=== PATIENT | male | born 1970 | race African-American/Black ===

== ENCOUNTER 2017-06-17 20:32 | Emergency (ER) | payer MEDICAID ==
[~2017-06-17] VITALS: Ht 170.2 cm; Wt 81.6 kg
[2017-06-17 20:35] VITALS: BP 145/100
--- NOTE | 2017-06-17 20:45 | NUR ---
PT. AMBULATES TO ER BED 5
--- NOTE | 2017-06-17 21:20 | NUR ---
Patient being evaluated by DR. HAQ at bedside.
--- NOTE | 2017-06-17 21:21 | NUR ---
47Y/M PT. PRESENTS TO ED WITH C/O CHEST PAIN X 5 DAYS. PT. ETOH, NO MEDICAL HX. AAO X4, AMBULATORY WITH STEADY GAIT. RESPIRATIONS ROOM AIR, EVEN AND UNLABORED. BL LUNGS CLEAR. SKIN WARM AND DRY. STATES PAIN 08/08. VSS, ER MD MADE AWARE OF PT. STATUS.
[2017-06-17 21:26] VITALS: BP 132/88
--- NOTE | 2017-06-17 21:26 | NUR ---
Patient discharged with v/s stable. Written and verbal after care instructions given and explained. Patient alert, oriented and verbalized understanding of instructions. Ambulatory with steady gait. All questions addressed prior to discharge. ID band removed. Patient advised to follow up with PMD. Rx of MOTRIN 800 MG given. Patient educated on indication of medication including possible reaction and side effects. Opportunity to ask questions provided and answered.
== END 2017-06-17 21:26 | disposition home or self-care (01) ==
LOC: MED 20:32
DX: R07.89 Other chest pain (principal)
CPT/HCPCS: 93005; 99283

== ENCOUNTER 2017-06-30 17:33 | Inpatient (IN) | payer MEDICAID ==
[~2017-06-30] VITALS: Ht 167.6 cm; Wt 76.7 kg
[2017-06-30 10:15] VITALS: BP 100/68
[2017-06-30 18:11] VITALS: BP 141/101
[2017-06-30] MEDS ORDERED: NACL 0.9% 500 ML IV ONE (19:09)
[2017-06-30] MEDS ORDERED: MULTIVITAMIN-12 10 ML, THIAMINE 100 MG, MAGNESIUM SULFATE 50% 2,000 MG, FOLIC ACID 5 MG... IV ONE ×5 (19:10)
[2017-06-30 19:48] LABS: HEMATOCRIT 40.6 % (36-52); HEMOGLOBIN 13.2 g/dL (12.0-18.0); WHITE BLOOD COUNT (AUTO) 4.9 K/uL (4.8-10.8)
[2017-06-30 19:52] LABS: MEAN CORPUSCULAR HEMOGLOBIN 28 pg (27-31); MEAN CORPUSCULAR HGB CONC 33 g/dL (33-37); MEAN CORPUSCULAR VOLUME 86 fL (80-94); PLATELET COUNT (AUTO) 212 K/uL (140-450); RED BLOOD CELL COUNT(AUTO) 4.71 MIL/uL (4.20-6.10); RED CELL DISTRIBUTION WIDTH 15.8 % (11.6-13.7)
[2017-06-30 19:57] LABS: ANION GAP 25.8 (8-16); CARBON DIOXIDE 18.5 mmol/L (21-32); CREATININE 1.1 mg/dL (0.7-1.3); POTASSIUM 4.3 mmol/L (3.5-5.1)
[2017-06-30 20:01] LABS: EOSINOPHILS % (MANUAL) 1 % (0-4); LYMPHOCYTES % (MANUAL) 47 % (20-46); MONOCYTES % (MANUAL) 7 % (5-12)
[2017-06-30 20:03] LABS: ALBUMIN 4.4 g/dL (3.4-5.0); TOTAL BILIRUBIN 0.3 mg/dL (0.0-1.0)
--- NOTE | 2017-06-30 20:15 | NUR ---
TO ER BED 4
--- NOTE | 2017-06-30 20:20 | NUR ---
PATIENT PRESENTS TO ED WITH C/O CP NON RADIATING .PT STATES HE HAS BEEN DRINKING FOR 3 WEEKS AND BEEN ALSO HAVING HALLUCINATION X 2 WEEK BUT ARE NOT HARMFUL TO HIMSELF OR OTHERS. PT DENIES N/V/D; SKIN IS PINK/WARM/DRY; AAOX4 WITH EVEN AND STEADY GAIT; LUNGS CLEAR BL; HR EVEN AND REGULAR; PT DENIES ANY FEVER, CP, SOB, OR COUGH AT THIS TIME; PATIENT STATES PAIN OF 0/10 AT THIS TIME; VSS; PATIENT POSITIONED FOR COMFORT; HOB ELEVATED; BEDRAILS UP X2; BED DOWN. ER MD MADE AWARE OF PT STATUS.
[2017-06-30] MEDS ORDERED: FOLIC ACID 5 MG/ML SYR ONE (20:38)
[2017-06-30] MEDS ORDERED: THIAMINE 200 MG/2 ML VIAL ONE (20:38)
[2017-06-30] MEDS ORDERED: MULTIVITAMIN-12 10 ML VIAL IV ONE (20:38)
[2017-06-30] MEDS ORDERED: MAG SULF 2000 MG/WATER PREMIX 0 ML IV ONE (20:46)
[2017-06-30] MEDS ORDERED: LORazepam 2 MG/ML VIAL IVP ONE (20:50)
[2017-06-30] MEDS ORDERED: LORazepam 1 MG TAB PO PRN (21:25)
[2017-06-30] MEDS: NACL 0.9% 1,000 ML IV SCH (21:39)
[2017-06-30] MEDS ORDERED: DOCUSATE SODIUM 100 MG GELCAP PO PRN (21:40)
[2017-06-30] MEDS ORDERED: ACETAMINOPHEN 325 MG TAB PO PRN (21:40)
[2017-06-30] MEDS ORDERED: MORPHINE SULFATE 2 MG/ML SYR IVP PRN (21:40)
[2017-06-30] MEDS ORDERED: ONDANSETRON 4 MG/2 ML VIAL IM/IVP PRN (21:40)
[2017-06-30] MEDS ORDERED: HYDROcodone/APAP 7.5/325 MG 1 TAB PO PRN (21:40)
[2017-06-30 21:42] LABS: PROTHROMBIN TIME 8.9 secs (10.8-13.4)
--- NOTE | 2017-06-30 21:45 | NUR ---
Patient will be admitted to care of DR CONROY. Admited to TELE 107B. Will go to room 107B. Belongings list completed. Report to ENOC BARNEY .
[2017-06-30] MEDS ORDERED: DEXTROSE 50% 50 ML SYR IVP PRN (21:50)
--- NOTE | 2017-06-30 22:10 | NUR ---
RECEIVED HANDOFF FROM ED NURSE. PATIENT A&OX4. IV SITE PATENT AND INTACT. NO SIGNS OR SYMPTOMS OF ACUTE DISTRESS. PATIENT DENIES PAIN. FAMILY MEMBER AT BEDSIDE. ORIENTED PATIENT TO ROOM. SAFETY MEASURES ENSURED. CALL LIGHT WITHIN REACH. WILL CONTINUE TO MONITOR.
[2017-06-30 22:16] LABS: FREE T4 (FREE THYROXINE) 0.66 ng/dL (0.76-1.46); PHOSPHORUS 4.5 mg/dL (2.5-4.9); THYROID STIMULATING HORMONE 2.07 uIU/mL (0.34-3.74)
[2017-07-01] VITALS: BP 127/72
--- NOTE | 2017-07-01 01:49 | NUR ---
PATIENT SLEEPING. NO SIGNS AND SYMPTOMS OF ACUTE DISTRESS NOTED. CALL LIGHT WITHIN REACH. WILL CONTINUE TO MONITOR.
[2017-07-01 03:23] LABS: HEMATOCRIT 34.8 % (36-52); HEMOGLOBIN 11.5 g/dL (12.0-18.0); MEAN CORPUSCULAR HEMOGLOBIN 28 pg (27-31); MEAN CORPUSCULAR HGB CONC 33 g/dL (33-37); MEAN CORPUSCULAR VOLUME 86 fL (80-94); PLATELET COUNT (AUTO) 173 K/uL (140-450); RED BLOOD CELL COUNT(AUTO) 4.04 MIL/uL (4.20-6.10); RED CELL DISTRIBUTION WIDTH 15.7 % (11.6-13.7)
[2017-07-01 03:33] LABS: ANION GAP 21.9 (8-16); CARBON DIOXIDE 19.1 mmol/L (21-32); CREATININE 1.1 mg/dL (0.7-1.3)
[2017-07-01 03:44] LABS: LYMPHOCYTES % (MANUAL) 40 % (20-46); MONOCYTES % (MANUAL) 10 % (5-12)
[2017-07-01 04:00] VITALS: BP 128/69
[2017-07-01] MEDS: NACL 0.9% 1,000 ML IV SCH ×2 (04:00→05:14)
--- NOTE | 2017-07-01 04:32 | NUR ---
PATIENT SLEEPING. NO SIGNS AND SYMPTOMS OF ACUTE DISTRESS. CALL LIGHT WITHIN REACH. WILL CONTINUE TO MONITOR.
--- NOTE | 2017-07-01 05:08 | NUR ---
PATIENT GIVEN HANDOUTS REGARDING DIABETES MANAGEMENT AND ALCOHOL ABUSE CESSATION. PATIENT VERBALIZED UNDERSTANDING. CALL LIGHT WITHIN REACH. WILL CONTINUE TO MONITOR.
[2017-07-01] MEDS: BLOOD GLUCOSE MONITORING 1 DEV DEV FS SCH ×3 (06:28→16:38)
[2017-07-01] MEDS: INSULIN LISPRO SLIDING SCALE 100 UNITS/ML VIAL SUBQ PRN ×3 (06:29→16:45)
--- NOTE | 2017-07-01 07:23 | NUR ---
ENDORSED HANDOFF REPORT TO AM RN. PATIENT STABLE. CALL LIGHT WITHIN REACH
--- NOTE | 2017-07-01 07:25 | NUR ---
RECEIVED PATIENT REPORT AT BEDSIDE FROM EVENING NURSE. NO SIGNS AND SYMPTOMS OF DISTRESS NOTED. NO COMPLAINTS OF PAIN AT THIS TIME. IV SITE NOTED ON LEFT FOREARM. IVF INFUSING WELL. BED IN LOWEST POSITION, SIDE RAILS UP AND CALL-LIGHT WITHIN REACH. WILL CONTINUE TO MONITOR.
[2017-07-01 08:00] VITALS: BP 118/80
[2017-07-01] MEDS: metFORMIN 500 MG TAB PO SCH ×2 (08:51→17:26)
[2017-07-01] MEDS ORDERED: MULTIVITAMIN 1 TAB PO SCH (09:00)
[2017-07-01] MEDS ORDERED: FOLIC ACID 1 MG TAB PO SCH (09:00)
[2017-07-01] MEDS ORDERED: THIAMINE 200 MG/2 ML VIAL IM SCH (09:00)
[2017-07-01] MEDS ORDERED: ATORVASTATIN 20 MG TAB PO SCH (09:00)
[2017-07-01] MEDS ORDERED: LISINOPRIL 5 MG TAB PO SCH (09:00)
--- NOTE | 2017-07-01 09:00 | NUR ---
PATIENT'S FAMILY MEMBER VISITING, PRESENT AT BEDSIDE
[2017-07-01 12:00] VITALS: BP 126/84
--- NOTE | 2017-07-01 12:00 | NUR ---
CHECKED ON PATIENT. PATIENT IS RESTING IN BED WATCHING TV. NO SIGNS AND SYMPTOMS OF DISTRESS NOTED. NO COMPLAINTS OF PAIN AT THIS TIME. BED IN LOWEST POSITION, SIDE RAILS UP AND CALL-LIGHT WITHIN REACH. WILL CONTINUE TO MONITOR
[2017-07-01] MEDS ORDERED: LORazepam 1 MG TAB PO SCH (13:00)
[2017-07-01] MEDS ORDERED: NACL 0.9% 1,000 ML IV SCH (14:10)
[2017-07-01 16:00] VITALS: BP 116/80
[2017-07-01] MEDS ORDERED: ATOR20TA40 PO (18:03)
[2017-07-01] MEDS ORDERED: LORA-476 PO (18:03)
[2017-07-01] MEDS ORDERED: LISI-424 PO (18:03)
[2017-07-01] MEDS ORDERED: MULT-405 PO (18:03)
[2017-07-01] MEDS ORDERED: METF500T4 PO (18:03)
[2017-07-01] MEDS ORDERED: FOLI1TAB90 PO (18:03)
--- NOTE | 2017-07-01 18:52 | NUR ---
PATIENT DISCHARGED. PATIENT GIVEN DISCHARGE INSTRUCTIONS AND PRESCRIPTIONS. PATIENT SIGNED DISCHARGE PAPERS, AND VERBALIZED UNDERSTANDING. IV SITE DISCONTINUED. TELE LEADS TAKEN OFF. PATIENT LEFT WITH ALL OF HIS BELONGINGS. PATIENT LEFT IN STABLE CONDITION.
--- NOTE | 2017-07-05 08:06 | NUR ---
DUNIA AVILA TRADE RECRUITER FROM [facility] [phone] FAX REVIEW TO [phone] REF #[id number] RETRO REVIEW, ER REPORT, H&P AND DISCHARGE SUMMARY FAXED TO GRAZYNA AVILA TRADE RECRUITER, [employer] [facility] [phone] RETRO ER REPORT, H&P AND DISCHARGE SUMMARY FAXED TO [employer] [phone] PHONE [phone] [id number] OP2
== END 2017-07-01 18:57 | disposition home or self-care (01) | DRG 775 ==
LOC: MED 17:33 → MTU 21:19
PROVIDERS: ADMIT Family Medicine; ATTEND Family Medicine
DX: F10.239 Alcohol dependence with withdrawal, unspecified (principal); E87.2 Acidosis; F10.229 Alcohol dependence with intoxication, unspecified; E11.65 Type 2 diabetes mellitus with hyperglycemia; R74.0 Nonspecific elevation of levels of transaminase and lactic acid dehydrogenase [LDH]; I10 Essential (primary) hypertension; Y90.8 Blood alcohol level of 240 mg/100 ml or more; E78.00 Pure hypercholesterolemia, unspecified; F12.90 Cannabis use, unspecified, uncomplicated; Z91.14 Patient's other noncompliance with medication regimen; Z83.3 Family history of diabetes mellitus; Z82.49 Family history of ischemic heart disease and other diseases of the circulatory system
CPT/HCPCS: 36415; 71010; 76700; 80048; 80053; 82948; 83036; 83690; 83735; 84100; 84436; 84439; 84443; 84479; 85025; 85610; 85730; 87081; 93005; 96365; 96375; 99285; A9153; G0482; J2060; J3411; J3475; J3490; J7030; Q0092

== ENCOUNTER 2017-12-04 08:13 | Inpatient (IN) | payer MEDICAID ==
[~2017-12-04] VITALS: Ht 170.2 cm; Wt 83.9 kg
[~2017-12-04 08:13] MED LIST: ATOR20TA40 PO; FOLI1TAB90 PO; LISI-424 PO; LORA-476 PO; METF500T4 PO; MULT-405 PO
[2017-12-04 08:18] VITALS: BP 128/96
--- NOTE | 2017-12-04 08:29 | NUR ---
PATIENT PRESENTS TO ED WITH GLUTEAL ABSCESS RIGHT BUTTOCK X 2 DAYS . PT STATES . DENIES N/V/D; SKIN IS PINK/WARM/DRY; AAOX4 WITH EVEN AND STEADY GAIT; LUNGS CLEAR BL; HR EVEN AND REGULAR; PT DENIES ANY FEVER, CP, SOB, OR COUGH AT THIS TIME; PATIENT STATES PAIN OF 10/10 AT THIS TIME; VSS; PATIENT POSITIONED FOR COMFORT; HOB ELEVATED; BEDRAILS UP X2; BED DOWN. ER MD MADE AWARE OF PT STATUS.
[2017-12-04] MEDS ORDERED: NACL 0.9% 1,000 ML IV SCH (08:39)
[2017-12-04] MEDS ORDERED: KETOROLAC 30 MG/ML VIAL IVP ONE (08:40)
[2017-12-04] MEDS ORDERED: CLINDAMYCIN 600 MG in DEXTROSE 5% 50 ML IV ONE (08:40)
[2017-12-04] MEDS ORDERED: ceFAZolin 1,000 MG VIAL ONE (08:53)
[2017-12-04] MEDS ORDERED: CLINDAMYCIN 600 MG/4 ML VIAL ONE (08:54)
--- NOTE | 2017-12-04 09:00 | NUR ---
PT STATING, HE REMEMBERS HAVING TAKEN TETANUS WITHIN LAST 6 MONTHS. MD NOTIFIED
[2017-12-04 09:11] LABS: BASOPHILS # (AUTO) 0.1 K/uL (0.00-0.22); BASOPHILS % (AUTO) 1.3 % (0.0-2.0); EOSINOPHILS # (AUTO) 0.1 K/uL (0-0.4); EOSINOPHILS % (AUTO) 2.1 % (0.0-4.0); HEMATOCRIT 37.4 % (36-52); HEMOGLOBIN 12.2 g/dL (12.0-18.0); LYMPHOCYTES # (AUTO) 0.8 K/uL (2.0-11.5); LYMPHOCYTES % (AUTO) 13.3 % (20.5-51.1); MEAN CORPUSCULAR HEMOGLOBIN 27 pg (27-31); MEAN CORPUSCULAR HGB CONC 33 g/dL (33-37); MEAN CORPUSCULAR VOLUME 81 fL (80-94); MONOCYTES # (AUTO) 0.7 K/uL (0.8-1.0); MONOCYTES % (AUTO) 12.6 % (1.7-9.3); NEUTROPHILS % (AUTO) 70.7 % (42.2-75.2); PLATELET COUNT (AUTO) 162 K/uL (140-450); RED BLOOD CELL COUNT(AUTO) 4.61 MIL/uL (4.20-6.10); RED CELL DISTRIBUTION WIDTH 14.5 % (11.6-13.7); WHITE BLOOD COUNT (AUTO) 5.7 K/uL (4.8-10.8)
[2017-12-04 09:28] LABS: CARBON DIOXIDE 20.1 mmol/L (21-32); POTASSIUM 4.1 mmol/L (3.5-5.1); TOTAL BILIRUBIN 0.3 mg/dL (0.0-1.0)
[2017-12-04] MEDS ORDERED: INSULIN HUMAN REGULAR 100 UNITS/ML 10 ML VIAL IVP ONE (09:50)
[2017-12-04] MEDS ORDERED: DEXTROSE 50% 50 ML SYR IVP PRN (10:55)
[2017-12-04] MEDS ORDERED: ONDANSETRON 4 MG/2 ML VIAL IVP PRN (10:55)
[2017-12-04] MEDS ORDERED: LORazepam 2 MG/ML VIAL IVP PRN (10:55)
[2017-12-04] MEDS ORDERED: LORazepam 1 MG TAB PO PRN (10:55)
[2017-12-04] MEDS ORDERED: ACETAMINOPHEN 325 MG TAB PO PRN (10:55)
[2017-12-04 11:05] VITALS: BP 123/81
[2017-12-04] MEDS: BLOOD GLUCOSE MONITORING 1 DEV DEV FS SCH ×3 (11:30→20:59)
--- NOTE | 2017-12-04 11:30 | NUR ---
PATIENT ADMITTED TO THE UNIT FROM ER. PATIENT AWAKE AND ORIENTED. PATIENT IS AMBULATORY. PATIENT ON ROOM AIR. NO SOB, NO S/S OF DISTRESS. OPEN ABSCESS NOTED TO THE RIGHT BUTTOCK. SEROSANGUINEOUS DRAINAGE NOTED. NONADHERENT DRESSING IN PLACE. IV LINE NOTED TO THE RIGHT AC, SALINE LOCKED. BED LOWERED WITH CALL LIGHT WITHIN REACH. WILL CONTINUE TO MONITOR
--- NOTE | 2017-12-04 12:00 | NUR ---
PATIENT'S BLOOD SUGAR 187. PATIENT REQUESTED TO HOLD OFF ON INSULIN FOR NOW. PATIENT RECEIVED 10 UNITS OF INSULIN IN ER. WILL CONTINUE TO MONITOR
[2017-12-04 12:44] LABS: APPEARANCE,URINE CLEAR (CLEAR); BILIRUBIN,URINE NEGATIVE (NEGATIVE); BLOOD, URINE NEGATIVE (NEGATIVE); COLOR,URINE YELLOW (YELLOW); LEUKOCYTE ESTERASE ,URINE NEGATIVE (NEGATIVE); NITRITE, URINE NEGATIVE (NEGATIVE); PH,URINE 5.5 (5.0-9.0); UGLUCOSE 3+ (NEGATIVE)
[2017-12-04] MEDS: MORPHINE SULFATE 2 MG/ML SYR IVP PRN ×2 (12:52→21:09)
[2017-12-04 13:39] LABS: PROTHROMBIN TIME 9.1 secs (10.8-13.4)
[2017-12-04] MEDS ORDERED: VANCOMYCIN PER PHARMACY MC PRN (14:15)
[2017-12-04 16:00] VITALS: BP 125/83
[2017-12-04] MEDS: VANCOMYCIN 1,250 MG in DEXTROSE 5% 250 ML IV SCH (16:22)
[2017-12-04] MEDS: metFORMIN 500 MG TAB PO SCH (16:31)
[2017-12-04] MEDS: HYDROcodone/APAP 5/325 MG 1 TAB TAB PO PRN (16:32)
[2017-12-04] MEDS: INSULIN LISPRO SLIDING SCALE 100 UNITS/ML VIAL SUBQ PRN ×2 (16:36→20:55)
[2017-12-04] MEDS: DEXT 5% / NACL 0.45% 1,000 ML IV SCH (17:57)
--- NOTE | 2017-12-04 19:26 | NUR ---
PATIENT REPORT GIVEN AT BEDSIDE. PATIENT ENDORSED IN STABLE CONDITION.
--- NOTE | 2017-12-04 19:27 | NUR ---
RECEIVED REPORT FROM DAY SHIFT NURSE. AAOX4. PT SITTING IN BED, EATING. AT BEDSIDE. NO C/O PAIN AT THIS TIME. IV TO RIGHT AC #20G, D5 1/2NS AT 100 ML/HR, INFUSING WELL. DISCUSSED PLAN OF CARE, PT VERBALIZED UNDERSTANDING. CALL LIGHT WITHIN REACH. WILL CONTINUE TO MONITOR.
[2017-12-04 20:00] VITALS: BP 131/90
[2017-12-04] MEDS ORDERED: CLINDAMYCIN 600 MG in DEXTROSE 5% 50 ML IV SCH (21:00)
--- NOTE | 2017-12-04 21:00 | NUR ---
BS CHECKED 263. 6 UNITS OF HUMALOG SQ GIVEN. NO DISTRESS NOTED. CALL LIGHT WITHIN REACH.
--- NOTE | 2017-12-04 23:30 | NUR ---
RIGHT BUTTOCK DRESSING CHANGED. NO C/O PAIN. WILL CONTINUE TO MONITOR. CALL LIGHT WITHIN REACH.
--- NOTE | 2017-12-05 02:00 | NUR ---
PT SLEEPING BUT EASILY AROUSABLE. NO C/O PAIN OR DISCOMFORT. CALL LIGHT WITHIN REACH.
[2017-12-05] MEDS: DEXT 5% / NACL 0.45% 1,000 ML IV SCH ×2 (03:15→13:19)
[2017-12-05 04:00] VITALS: BP 130/82
--- NOTE | 2017-12-05 04:40 | NUR ---
PT SLEEPING BUT WAKES EASILY. NO S/S OF DISTRESS. CALL LIGHT WITHIN REACH.
[2017-12-05] MEDS: VANCOMYCIN 1,250 MG in DEXTROSE 5% 250 ML IV SCH (04:50)
[2017-12-05] MEDS: INSULIN LISPRO SLIDING SCALE 100 UNITS/ML VIAL SUBQ PRN ×4 (06:26→20:25)
[2017-12-05] MEDS: BLOOD GLUCOSE MONITORING 1 DEV DEV FS SCH ×4 (06:28→20:21)
--- NOTE | 2017-12-05 06:30 | NUR ---
BS CHECKED 278. INSULIN COVERAGE GIVEN PER SLIDING SCALE. NO DISTRESS NOTED.
[2017-12-05 07:05] LABS: BASOPHILS # (AUTO) 0.1 K/uL (0.00-0.22); EOSINOPHILS # (AUTO) 0.1 K/uL (0-0.4); EOSINOPHILS % (AUTO) 2.2 % (0.0-4.0); HEMATOCRIT 34.5 % (36-52); HEMOGLOBIN 11.1 g/dL (12.0-18.0); LYMPHOCYTES % (AUTO) 28.6 % (20.5-51.1); MEAN CORPUSCULAR HEMOGLOBIN 26 pg (27-31); MEAN CORPUSCULAR HGB CONC 32 g/dL (33-37); MEAN CORPUSCULAR VOLUME 82 fL (80-94); MONOCYTES # (AUTO) 0.5 K/uL (0.8-1.0); MONOCYTES % (AUTO) 14.2 % (1.7-9.3); NEUTROPHILS # (AUTO) 1.8 K/uL (1.8-7.7); PLATELET COUNT (AUTO) 158 K/uL (140-450); RED CELL DISTRIBUTION WIDTH 14.5 % (11.6-13.7); WHITE BLOOD COUNT (AUTO) 3.5 K/uL (4.8-10.8)
[2017-12-05 07:19] LABS: ANION GAP 17.3 (8-16); CARBON DIOXIDE 23.5 mmol/L (21-32); CREATININE 0.8 mg/dL (0.7-1.3); POTASSIUM 3.8 mmol/L (3.5-5.1)
--- NOTE | 2017-12-05 07:20 | NUR ---
ENDORSED PT TO DAY SHIFT NURSE. PT IN STABLE CONDITION.
--- NOTE | 2017-12-05 07:25 | NUR ---
RECEIVED REPORT FROM BURGLAR ALARM SUPERINTENDENT NURSE, PT IS SITTING UP IN BED, PT IS AAOX4, AMBULATORY, PT HAS IV ON THE RIGHT AC, PATENT, INTACT, FLUSHING WELL, PT HAS CELLULITIS ON RIGHT BUTTOCKS, DRESSING IN PLACE AT THIS TIME, DRY AND INTACT, NO S/S OF RESPIRATORY DISTRESS OR DISCOMFORT NOTED, DISCUSSED PLAN OF CARE WITH PT, PT VERBALIZED UNDERSTANDING, CALL LIGHT IS WITHIN REACH, WILL CONTINUE TO MONITOR.
[2017-12-05] MEDS: LISINOPRIL 5 MG TAB PO SCH (08:20)
[2017-12-05] MEDS: metFORMIN 500 MG TAB PO SCH ×2 (08:21→17:31)
[2017-12-05] MEDS: MORPHINE SULFATE 2 MG/ML SYR IVP PRN ×3 (08:23→22:48)
[2017-12-05] MEDS: ATORVASTATIN 20 MG TAB PO SCH (09:00)
[2017-12-05] MEDS: FOLIC ACID 1 MG TAB PO SCH (09:00)
[2017-12-05] MEDS: MULTIVITAMIN 1 TAB PO SCH (09:08)
--- NOTE | 2017-12-05 09:46 | NUR ---
PATIENT HAS BEEN SCREENED AND CATEGORIZED HIGH NUTRITION RISK. PATIENT WILL BE SEEN WITHIN 1-2 DAYS OF ADMISSION. 12/04/17-12/05/[address]
--- NOTE | 2017-12-05 14:13 | NUR ---
CM NOTE SPOKE WITH YFN OF [facility] PH# [phone] CM DEPT WHO SAID THAT FOR REVIEWS AND FOR ANY DISCHARGE NEEDS TO CONTACT [facility] BECAUSE PATIENT IS OUT OF AREA. SPOKE WITH UNIQUE (REF# [id number]) OF [facility] PH# [phone] AND CONNECTED ME TO TU OF [facility] WHO SAID THAT THERE IS NO ASSIGNED FLOOR REPRESENTATIVE YET AND NO NUMBER YET WHERE TO SEND REVIEWS TO. SHE GOT MY CONTACT NUMBER AND SAID THAT SOMEBODY FROM [facility] WILL GIVE A CALL WHEN THEY ALREADY HAVE AN ASSIGNED FLOOR REPRESENTATIVE TO KNOW WHERE TO SEND REVIEWS TO AND WHO TO CONTACT FOR ANY DISCHARGE NEEDS.
[2017-12-05] MEDS ORDERED: BUPIVACAINE-MPF 0.25% 30 ML VIAL INJ ONE (14:18)
[2017-12-05] MEDS ORDERED: HYDROGEN PEROXIDE 3% 240 ML BTL TP ONE (14:19)
--- NOTE | 2017-12-05 14:30 | NUR ---
PATIENT TAKEN OFF UNIT TAKEN TO OR FOR PROCEDURE. PT LEFT IN STABLE CONDITION.
[2017-12-05] MEDS ORDERED: KETAMINE 500 MG/5 ML VIAL ONE (14:50)
[2017-12-05] MEDS ORDERED: MIDAZOLAM 2 MG/2 ML VIAL ONE (14:50)
[2017-12-05] MEDS ORDERED: fentaNYL 0.05 MG/ML VIAL ONE (14:58)
[2017-12-05] MEDS ORDERED: MEPERIDINE 50 MG/ML SYR ONE (14:59)
[2017-12-05] MEDS: CHLORHEXADINE GLUC 2% CLOTH TP SCH (15:00)
--- NOTE | 2017-12-05 15:00 | NUR ---
PATIENT RETURNED TO UNIT, PT IS AAOX4, PT HAS DRESSING ON RIGHT BUTTOCKS AT THIS TIME, DRY AND INTACT, CALL LIGHT WITHIN REACH, WILL CONTINUE TO MONITOR.
[2017-12-05] MEDS ORDERED: LACTATED RINGERS 1,000 ML IV SCH (15:38)
[2017-12-05] MEDS ORDERED: ONDANSETRON 4 MG/2 ML VIAL IVP PRN (15:40)
[2017-12-05] MEDS ORDERED: MEPERIDINE 25 MG/ML SYR IVP PRN (15:40)
[2017-12-05] MEDS ORDERED: HYDROmorphone 1 MG/ML AMP IVP PRN (15:40)
[2017-12-05] MEDS ORDERED: diphenhydrAMINE 50 MG/ML VIAL IVP PRN (15:40)
[2017-12-05 16:00] VITALS: BP 138/83
[2017-12-05] MEDS: MUPIROCIN 2% OINT 22 GM TUBE TP SCH (16:44)
--- NOTE | 2017-12-05 17:15 | NUR ---
PT RESTING IN BED. PAIN LEVEL HAS DECREASED AFTER ADMINISTERING MORPHINE SULFATE. PT SAID HE ONLY FEELS PAIN WHEN HE MOVES NOW. CALL LIGHT WITHIN REACH. WILL CONTINUE TO MONITOR.
--- NOTE | 2017-12-05 17:16 | NUR ---
PT OFF UNIT
--- NOTE | 2017-12-05 17:34 | NUR ---
12/05/2017 RD INITIAL ASSESSMENT COMPLETED PLEASE REFER TO NUTRITION ASSESSMENT UNDER CARE ACTIVITY FOR ESTIMATED NUTRITIONAL NEEDS. 1.CONTINUE NPO STATUS UNTIL MEDICALLY APPROPRIATE TO ADVANCE DIET. 2.ADVANCE DIET TOLERATED TO CCHO 60 GM WHEN MEDICALLY APPROPRIATE. 3.CONTINUE ANTIHYPERGLYCEMIC MEDS AND INITIATE CCHO DIET FOR GLUCOSE CONTROL. 4.RD TO DISCUSS DIET/INTAKE (COMPLETED). RD TO FOLLOW-UP IN 3-5 DAYS PATIENT IS MODERATE RISK. GORDY CALLEJAS RD
--- NOTE | 2017-12-05 19:20 | NUR ---
PT STABLE AT THIS TIME. ENDORSED PT TO SET UP MOLD TECHNICIAN NURSE FOR CONTINUITY OF CARE.
--- NOTE | 2017-12-05 19:30 | NUR ---
RECEIVED REPORT FROM AM NURSE. PT FAMILY AT BEDSIDE. PT RESTING IN BED, AOX4, AMBULATORY, ABLE TO VERBALIZE NEEDS. PT IS S/P R BUTTOCK ABSCESS I&D TODAY (12/05/17). PT C/O TOLERABLE PAIN AT THIS TIME, WILL MEDICATE WHEN NEEDED. PT DENIES CHEST PAIN, SOB OR S/S OF ACUTE DISTRESS. PT REPORTS BEING ABLE TO TOLERATE CLEAR LIQUID DIET, REPORTS NO NAUSEA. IV ACCESS ASYMPTOMATIC, PATENT AND INTACT. IVF INFUSING WELL. DISCUSSED AND REVIEWED PLAN OF CARE WITH PT, PT VERBALIZED UNDERSTANDING. ALL NEEDS MET. SAFETY MEASURES ENSURED. CALL LIGHT WITHIN REACH.
[2017-12-05 20:00] VITALS: BP 116/75
[2017-12-05] MEDS: VANCOMYCIN 1,500 MG in NACL 0.9% 500 ML IV SCH (20:21)
--- NOTE | 2017-12-05 20:25 | NUR ---
BLOOD GLUCOSE 204, ADMINISTERED INSULIN COVERAGE WITH SNACK AND EDUCATION. ADMINISTERED DUE MED VANCO IVPB WITH EDUCATION. PT VERBALIZED UNDERSTANDING, TOLERATED MEDS WELL. ALL NEEDS MET. IVPB INFUSING WELL. SAFETY MEASURES ENSURED. CALL LIGHT WITHIN REACH. CALLED DR RIVAS, MADE AWARE THAT PT IS ON D5-1/2NS AT 100ML/HR, PT IS S/P R BUTTOCKS ABSCESS I&D TODAY, TOLERATING CLEAR LIQUID DIET WELL, PT HAS HAD ELEVATED BLOOD GLUCOSE WITH MOST RECENT 204. ORDERS RECEIVED TO CHANGE IVF TO NS AT 100ML/HR. ORDERS PENDING, WILL CARRY OUT.
[2017-12-05] MEDS: NACL 0.9% 1,000 ML IV SCH (21:09)
--- NOTE | 2017-12-05 22:48 | NUR ---
PT C/O R BUTTOCK PAIN, SEE PAIN ASSESSMENT, ADMINISTERED 2MG MORPHINE IVP PRN WITH EDUCATION, PT VERBALIZED UNDERSTANDING. ALL NEEDS MET. SAFETY MEASURES ENSURED. CALL LIGHT WITHIN REACH.
[2017-12-06] VITALS: BP 118/80
--- NOTE | 2017-12-06 00:30 | NUR ---
PT SLEEPING COMFORTABLY, AROUSABLE TO NAME, SPO2 98% ON ROOM AIR, RR 16 EVEN AND UNLABORED. ALL NEEDS MET. IVF INFUSING WELL. SAFETY MEASURES ENSURED.
--- NOTE | 2017-12-06 04:45 | NUR ---
PT SLEEPING COMFORTABLY, RESPIRATIONS EVEN AND UNLABORED, ALL NEEDS MET. IVF INFUSING WELL. SAFETY MEASURES ENSURED. CALL LIGHT WITHIN REACH.
[2017-12-06] MEDS: NACL 0.9% 1,000 ML IV SCH ×2 (06:25→16:08)
[2017-12-06] MEDS: HYDROcodone/APAP 5/325 MG 1 TAB TAB PO PRN ×2 (06:36→15:52)
[2017-12-06] MEDS: BLOOD GLUCOSE MONITORING 1 DEV DEV FS SCH ×4 (06:37→20:23)
[2017-12-06] MEDS: INSULIN LISPRO SLIDING SCALE 100 UNITS/ML VIAL SUBQ PRN ×4 (06:50→20:23)
--- NOTE | 2017-12-06 06:50 | NUR ---
BLOOD GLUCOSE 234, ADMINISTERED INSULIN COVERAGE WITH EDUCATION. PT C/O R BUTTOCK PAIN, SEE PAIN ASSESSMENT, ADMINISTERED NORCO PO PRN WITH EDUCATION. PT VERBALIZED UNDERSTANDING, TOLERATED MED WELL. ALL NEEDS MET. IVF INFUSING WELL. SAFETY MEASURES ENSURED. CALL LIGHT WITHIN REACH.
[2017-12-06 06:54] LABS: BASOPHILS % (AUTO) 1.4 % (0.0-2.0); EOSINOPHILS # (AUTO) 0.1 K/uL (0-0.4); EOSINOPHILS % (AUTO) 2.3 % (0.0-4.0); HEMATOCRIT 31.9 % (36-52); HEMOGLOBIN 10.5 g/dL (12.0-18.0); LYMPHOCYTES # (AUTO) 1.3 K/uL (2.0-11.5); LYMPHOCYTES % (AUTO) 39.2 % (20.5-51.1); MEAN CORPUSCULAR HEMOGLOBIN 27 pg (27-31); MEAN CORPUSCULAR HGB CONC 33 g/dL (33-37); MEAN CORPUSCULAR VOLUME 82 fL (80-94); MONOCYTES # (AUTO) 0.4 K/uL (0.8-1.0); MONOCYTES % (AUTO) 10.7 % (1.7-9.3); NEUTROPHILS # (AUTO) 1.5 K/uL (1.8-7.7); NEUTROPHILS % (AUTO) 46.4 % (42.2-75.2); PLATELET COUNT (AUTO) 172 K/uL (140-450); RED CELL DISTRIBUTION WIDTH 14.7 % (11.6-13.7); WHITE BLOOD COUNT (AUTO) 3.3 K/uL (4.8-10.8)
[2017-12-06 07:13] LABS: ANION GAP 16.3 (8-16); CARBON DIOXIDE 24.3 mmol/L (21-32); CREATININE 0.9 mg/dL (0.7-1.3); POTASSIUM 3.6 mmol/L (3.5-5.1)
--- NOTE | 2017-12-06 07:15 | NUR ---
ENDORSED PLAN OF CARE TO AM NURSE. CONDITION STABLE.
--- NOTE | 2017-12-06 07:30 | NUR ---
RECEIVED PT REPORT FROM BUTTON BROACHER NURSE. PT IS AAOX4. PT IS AMBULATORY, ABLE TO VERBALIZE NEEDS. PT IS S/P R BUTTOCK ABSCESS I&D WHICH IS ON 12/05/17. PT DENIES PAIN AT THIS TIME. NO S/S OF ACUTE DISTRESS NOTED. PT REPORTS BEING ABLE TO TOLERATE CLEAR LIQUID DIET, WILL CONTACT MD REGARDING CHANGING DIET ORDER. DENIES NAUSEA AND VOMITING. IV CATH NOTED TO THE RIGHT AC, 20G, ASYMPTOMATIC, PATENT AND INTACT. IVF INFUSING WELL. DISCUSSED PLAN OF CARE WITH PT, PT VERBALIZED UNDERSTANDING. SAFETY MEASURES ENSURED. CALL LIGHT WITHIN REACH.
[2017-12-06 08:00] VITALS: BP 120/73
--- NOTE | 2017-12-06 08:42 | NUR ---
PT REPORTED IV LEAKING. IV DC'ED, TIP INTACT, NO BLEEDING, PRESSURE APPLIED. INSERTED NEW IV LEFT HAND 22G. PT TOLERATED WELL.
[2017-12-06] MEDS: MULTIVITAMIN 1 TAB PO SCH (08:45)
[2017-12-06] MEDS: VANCOMYCIN 1,500 MG in NACL 0.9% 500 ML IV SCH ×2 (08:45→19:32)
[2017-12-06] MEDS: FOLIC ACID 1 MG TAB PO SCH (08:45)
[2017-12-06] MEDS: LISINOPRIL 5 MG TAB PO SCH (08:46)
[2017-12-06] MEDS: ATORVASTATIN 20 MG TAB PO SCH (08:46)
[2017-12-06] MEDS: metFORMIN 500 MG TAB PO SCH ×2 (08:46→17:42)
--- NOTE | 2017-12-06 09:20 | NUR ---
WOUND EVALUATION NOTE: REASON FOR WOUND EVALUATION: S/P RIGHT BUTTOCK ABSCESS INCISION AND DRAINAGE 12/01/17 COMPLETE SKIN ASSESSMENT DONE IN THIS 47Y/O MALE FROM HOME TO [facility] WITH CHIEF COMPLAINT OF RIGHT BUTTOCK ABSCESS. PAST MEDICAL HX INCLUDE DM, HTN AND HYPERLIPIDEMIA. LABS ARE WBC: 3.3, H/H 10.5/31.9, GLUCOSE 243, ALBUMIN 3.0, PT/INR 9.1/.09. PTT: 26. PATIENT CURRENTLY ON VANCOMYCIN AND INSULIN. PATIENT'S SKIN WARM TO TOUCH, NO EDEMA BLE WITH NO HAIR GROWTH. NORMAL PEDAL PULSES. PLAN OF CARE AND WOUND CARE EDUCATION GIVEN TO PATIENT. PATIENT VERBALIZED UNDERSTANDING. INTEGUMENTARY: RIGHT BUTTOCK S/P I&D SURGICAL WOUND 4.5X4.0X2.0cm. WOUND EDGE FLAT, WOUND BED RED WITH SMALL AMOUNT OF SANGUINOUS DRAINAGE. NO FOUL ODOR. PAIN 1/10. RECOMMENDATIONS: -CLEANSE WOUND WITH NS, PAT DRY. PACK WOUND WITH IODOFORM DRESSING. COVER WITH ADAPTIC DRESSING AND ABD PAD. SECURE WITH TAPE QDAY AND PRN IF SOILING. -F/U WITH SURGEON 7-10 DAYS AFTER D/C -KEEP SKIN DRY AND CLEAN AT ALL TIMES -UPON D/C PROVIDE PATIENT WITH 1/2 INCH IODOFORM 2 BOTTLES, ABD PADS, ADAPTIC DRESSING, NORMAL SALINE AND TAPE. RECOMMENDATIONS DISCUSSED WITH PRIMARY RN WILL FOLLOW UP PRN IF ANY CHANGE OF WOUND CONDITION. PLEASE CONTACT WOUND CARE NURSE FOR ANY QUESTIONS
[2017-12-06] MEDS: MORPHINE SULFATE 2 MG/ML SYR IVP PRN ×2 (09:23→19:32)
--- NOTE | 2017-12-06 10:20 | NUR ---
AWAKE AND ALERT TOLERATED INCENTIVE SPIROMETRY THERAPY WELL WITHOUT INCIDENT ENCOURAGED PATIENT WITH ACKNOWLEDGEMENT TO USE EVERY 2 HOURS WHILE AWAKE
--- NOTE | 2017-12-06 14:13 | NUR ---
TAMMY NOTE PER SHANDRA OF [facility] (PH# [phone] THEN CONNECTED TO [facility], REF# [id number]) NO ASSIGNED PLUMBER'S ASSISTANT AT THIS TIME AND TO WAIT FOR SOMEBODY FROM [facility] TO CALL BACK TO KNOW WHO THE PLUMBER'S ASSISTANT IS AND WHERE TO SEND THE REVIEWS AND DISCHARGE ORDER. PER [facility] PH# [phone] CM DEPT, FAX ORDER FOR DISCHARGE NEEDS TO [employer] [facility] [phone] PH# [phone] EXT [phone]. FAXED ORDER FOR HOME HEALTH, H&P, OPERATIVE REPORT, WOUND CARE EVAL NOTE TO [facility] [phone] ATTN: D/C LUPE HAMPTON. PER D/C LUPE HAMPTON OF [facility], THE ASSIGNED PLUMBER'S ASSISTANT IS GRACIELA Hayes AND TO SEND REVIEWS TO [phone]. FAXED REVIEWS TO [facility] [phone] ATTN: TAMMY Hayes PH# [phone] EXT [phone].
[2017-12-06] MEDS: MUPIROCIN 2% OINT 22 GM TUBE TP SCH (15:52)
[2017-12-06] MEDS: CHLORHEXADINE GLUC 2% CLOTH TP SCH (15:52)
[2017-12-06 16:00] VITALS: BP 138/88
--- NOTE | 2017-12-06 17:30 | NUR ---
DR MEDEROS WAS HERE TO SEE THE WOUND. OLD DRESSING REMOVED, CLEANED WITH NS, PATTED DRY, PACKED WITH GAUZE, COVERED WITH TWO 4X4 GAUZES. PRESSURE APPLIED.
--- NOTE | 2017-12-06 19:24 | NUR ---
ENDORSED PT TO DRUG ABUSE RESISTANCE EDUCATION OFFICER NURSE. PT IS AWAKE AND IN STABLE CONDITION, FAMILY MEMBER AT BEDSIDE.
--- NOTE | 2017-12-06 19:35 | NUR ---
RECEIVED REPORT FROM AM NURSE. PT FAMILY AT BEDSIDE. PT RESTING IN BED, AOX4, AMBULATORY, ABLE TO VERBALIZE NEEDS. PT IS S/P R BUTTOCK ABSCESS I&D (12/05/17), DRESSING CLEAN DRY AND INTACT, DRESSING CHANGED WAS PERFORMED TODAY. PT C/O PAIN, WILL MEDICATE. PT DENIES CHEST PAIN, SOB OR S/S OF ACUTE DISTRESS. PT REPORTS BEING ABLE TO TOLERATE CARDIAC DIET, REPORTS NO NAUSEA. IV ACCESS ASYMPTOMATIC, PATENT AND INTACT. IVF INFUSING WELL. DISCUSSED AND REVIEWED PLAN OF CARE WITH PT, PT VERBALIZED UNDERSTANDING. ALL NEEDS MET. SAFETY MEASURES ENSURED. CALL LIGHT WITHIN REACH.
[2017-12-06 20:00] VITALS: BP 149/96
--- NOTE | 2017-12-06 20:25 | NUR ---
BLOOD GLUCOSE 192, ADMINISTERED INSULIN COVERAGE WITH SNACK AND EDUCATION, PT VERBALIZED UNDERSTANDING, TOLERATED MED WELL. ALL NEEDS MET. IVPB INFUSING WELL. SAFETY MEASURES ENSURED. CALL LIGHT WITHIN REACH.
[2017-12-07] VITALS: BP 136/90
--- NOTE | 2017-12-07 00:15 | NUR ---
PT RESTING COMFORTABLY IN BED, PT STATED HE FEELS FINE. ALL NEEDS MET. IVF INFUSING WELL. SAFETY MEASURES ENSURED. CALL LIGHT WITHIN REACH.
[2017-12-07] MEDS: NACL 0.9% 1,000 ML IV SCH ×2 (02:13→09:33)
--- NOTE | 2017-12-07 04:15 | NUR ---
PT SLEEPING COMFORTABLY, RR 18 EVEN AND UNLABORED. ALL NEEDS MET. IVF INFUSING WELL. SAFETY MEASURES ENSURED. CALL LIGHT WITHIN REACH.
[2017-12-07] MEDS: BLOOD GLUCOSE MONITORING 1 DEV DEV FS SCH ×2 (06:26→12:24)
[2017-12-07] MEDS: INSULIN LISPRO SLIDING SCALE 100 UNITS/ML VIAL SUBQ PRN ×2 (06:28→12:47)
--- NOTE | 2017-12-07 06:33 | NUR ---
BLOOD GLUCOSE 240, INSULIN COVERAGE ADMINISTERED. PT REPORTS NO PAIN AT THIS TIME. ALL NEEDS MET. IVF INFUSING WELL. SAFETY MEASURES ENSURED. CALL LIGHT WITHIN REACH.
[2017-12-07 07:09] LABS: HEMATOCRIT 31.5 % (36-52); HEMOGLOBIN 10.4 g/dL (12.0-18.0); MEAN CORPUSCULAR HEMOGLOBIN 27 pg (27-31); MEAN CORPUSCULAR HGB CONC 33 g/dL (33-37); MEAN CORPUSCULAR VOLUME 82 fL (80-94); PLATELET COUNT (AUTO) 204 K/uL (140-450); RED BLOOD CELL COUNT(AUTO) 3.87 MIL/uL (4.20-6.10); RED CELL DISTRIBUTION WIDTH 14.4 % (11.6-13.7); WHITE BLOOD COUNT (AUTO) 3.3 K/uL (4.8-10.8)
--- NOTE | 2017-12-07 07:15 | NUR ---
ENDORSED PLAN OF CARE TO AM NURSE. CONDITION STABLE.
--- NOTE | 2017-12-07 07:30 | NUR ---
ENDORSEMENT RECEIVED FROM CHILDREN'S ENTERTAINER NURSE. PATIENT IS AWAKE, ALERT. RESPIRATION EVEN, UNLABOR. SKIN DRY AND WARM. IV PATENT AND INTACT. COMPLAINED OF PAIN 7/10 ON RIGHT BUTTOCK, WILL MEDICATE PER ORDER. PLAN OF CARE WAS DISCUSSED WITH THE PATIENT. BED AT LOW POSITION. CALL LIGHT WITHIN REACH
[2017-12-07 08:00] VITALS: BP 127/91
[2017-12-07 08:02] LABS: LYMPHOCYTES % (MANUAL) 40 % (20-46); MONOCYTES % (MANUAL) 15 % (5-12)
[2017-12-07] MEDS: ATORVASTATIN 20 MG TAB PO SCH (08:14)
[2017-12-07] MEDS: MULTIVITAMIN 1 TAB PO SCH (08:14)
[2017-12-07] MEDS: metFORMIN 500 MG TAB PO SCH (08:14)
[2017-12-07] MEDS: HYDROcodone/APAP 5/325 MG 1 TAB TAB PO PRN ×2 (08:15→12:45)
[2017-12-07] MEDS: FOLIC ACID 1 MG TAB PO SCH (08:15)
[2017-12-07] MEDS: LISINOPRIL 5 MG TAB PO SCH (08:15)
[2017-12-07 08:23] LABS: ANION GAP 14.1 (8-16); CARBON DIOXIDE 27.7 mmol/L (21-32); CREATININE 0.9 mg/dL (0.7-1.3); POTASSIUM 3.8 mmol/L (3.5-5.1)
[2017-12-07] MEDS: VANCOMYCIN 1,500 MG in NACL 0.9% 500 ML IV SCH (08:44)
[2017-12-07] MEDS ORDERED: SULF-58 PO (10:34)
--- NOTE | 2017-12-07 11:58 | NUR ---
TAMMY NOTE CONCURRENT REVIEW FAXED TO [facility] ATTN: TAMMY Hayes [phone] PH# [phone] EXT [phone]. PER [facility] D/C INTERACTIVE ART DIRECTOR BERTA PH# [phone] EXT [phone], HOME HEALTH IS ARRANGED WITH [facility] , AUTH# [id number]. PER KERRY OF [facility] PH# [phone] OPT 1, THEY ARE ACCEPTING THE PATIENT AND THEY HAVE A NURSE TO SEE THE PATIENT WHEN DISCHARGED. INFORMED THEM OF THE DISCHARGE ORDER FOR TODAY. CYNDIE BARNEY AWARE. RECEIVED FAX FROM [facility] LYNNETTE NAIDU RN REQUESTING FOR CLINICAL REVIEW, ED NOTES, H&P, CONSULTATION REPORTS, OPERATIVE REPORT. FAXED REVIEWS, ED NOTES, H&P, CONSULTATION REPORTS, OPERATIVE REPORT TO [employer] [facility] ATTN: LYNNETTE NAIDU RN [phone] PH# [phone]. INFORMED LYNNETTE NAIDU RN OF DISCHARGE ORDER FOR PATIENT TODAY.
--- NOTE | 2017-12-07 12:24 | NUR ---
WOUND ASSESSMENT DONE, DRESSING WAS CHANGED ON THE RIGHT BUTTOCK, PICTURE WAS TAKEN. PATIENT TOLERATED WELL. IV WAS REMOVED, CATHETER INTACT. NO ACTIVE BLEEDING SEEN, PATIENT TOLERATED WELL.
[2017-12-07] MEDS ORDERED: NACL 0.9% IRR 250 ML BOTTLE IR SCH (13:00)
--- NOTE | 2017-12-07 15:05 | NUR ---
DISCHARGE INSTRUCTION WAS GIVEN THE THE PATIENT. PATIENT VERBALIZED UNDERSTANDING. ID BAND WAS REMOVED. WOUND CARE INSTRUCTION AND 1 WEEK SUPPLIES WERE GIVEN TO THE PATIENT. ALL BELONGINGS WERE TAKEN WITH THE PATIENT. PATIENT WAS ESCORTED OUT BY STAFF. PATIENT IS STABLE AT THIS TIME
[2017-12-07] MEDS ORDERED: VANCOMYCIN 1GM/DEXT 5% PREMIX 200 ML IV SCH (16:00)
== END 2017-12-07 15:05 | disposition home health service (06) | DRG 710 ==
LOC: MED 08:13 → MTU 10:03
PROVIDERS: ADMIT Preventive Medicine Preventive Medicine/Occupational Environmental Medicine; ATTEND Preventive Medicine Preventive Medicine/Occupational Environmental Medicine
PROC: 0K9N0ZZ Drainage of Right Hip Muscle, Open Approach (ICD-10-PCS; principal; 2017-12-05 14:15)
DX: A41.9 Sepsis, unspecified organism (principal); E44.0 Moderate protein-calorie malnutrition; E11.65 Type 2 diabetes mellitus with hyperglycemia; L02.31 Cutaneous abscess of buttock; I10 Essential (primary) hypertension; E11.9 Type 2 diabetes mellitus without complications; E78.5 Hyperlipidemia, unspecified; J45.909 Unspecified asthma, uncomplicated; F41.9 Anxiety disorder, unspecified; L03.317 Cellulitis of buttock; D64.9 Anemia, unspecified; Z68.29 Body mass index [BMI] 29.0-29.9, adult; Z22.322 Carrier or suspected carrier of Methicillin resistant Staphylococcus aureus; Z79.84 Long term (current) use of oral hypoglycemic drugs; Z83.3 Family history of diabetes mellitus; Z82.49 Family history of ischemic heart disease and other diseases of the circulatory system
CPT/HCPCS: 36415; 80048; 80053; 80202; 81003; 82948; 83605; 85025; 85610; 85651; 85730; 86140; 86886; 86900; 86901; 87040; 87070; 87075; 87081; 87086; 87186; 87205; 90715; 93005; 96365; 96368; 96375; 99285; J0690; J1815; J1885; J2175; J2250; J2270; J3010; J3370; J3490; J7030; J7060

== ENCOUNTER 2019-08-01 07:12 | Emergency (ER) | payer MEDICAID ==
[~2019-08-01] VITALS: Ht 170.2 cm; Wt 81.6 kg
[~2019-08-01 07:12] MED LIST changes: +METF-988 PO; -METF500T4 PO; +SULF-58 PO
[2019-08-01 07:15] VITALS: BP 147/82
--- NOTE | 2019-08-01 07:28 | NUR ---
49M C/O UNABLE TO STOP DRINKING ETOH. HAS BEEN DRINKING 80OZ ALCOHOLIC BEVERAGES DAILY FOR THE PAST 5 DAYS. C/O "FEELING SHAKEY" INTERNALLY. STATES NO PHYSICAL SHAKING. LAST DRINK THIS MORNING BEFORE COMING INTO ER. WALKED HERE. FSBS 366. PT DID NOT TAKE METFORMIN THIS MORNING. AOX4 BUT SLOW TO ANSWER QUESTIONS. NO SLURRED SPEECH. SMELLS OF ALCOHOL. HX- DM, ALCOHOLISM RX- METFORMIN Addendum: 08/01/19 at 5933 by CHRIS AUDRAIES N/V/D
--- NOTE | 2019-08-01 07:35 | NUR ---
NOTIFIED DR. WORLEY OF FSBS 366. PT DID NOT TAKE METFORMIN THIS AM, DRANK ETOH BEFORE WALKING INTO ER.
--- NOTE | 2019-08-01 07:42 | NUR ---
Dr. Vega evaluating patient at bedside.
[2019-08-01] MEDS ORDERED: NACL 0.9% 1,000 ML IV ONE (07:50)
--- NOTE | 2019-08-01 07:56 | NUR ---
BLOOD DRAW HANDED TO CASTING OPERATOR HELPER.
[2019-08-01 08:04] LABS: BASOPHILS # (AUTO) 0.1 K/uL (0.00-0.22); BASOPHILS % (AUTO) 0.8 % (0.0-2.0); EOSINOPHILS % (AUTO) 0.4 % (0.0-4.0); HEMOGLOBIN 14.4 g/dL (12.0-18.0); LYMPHOCYTES # (AUTO) 2.9 K/uL (2.0-11.5); LYMPHOCYTES % (AUTO) 43.8 % (20.5-51.1); MEAN CORPUSCULAR HEMOGLOBIN 27 pg (27-31); MEAN CORPUSCULAR HGB CONC 32 g/dL (33-37); MEAN CORPUSCULAR VOLUME 84.4 fL (80-94); MONOCYTES # (AUTO) 0.4 K/uL (0.8-1.0); NEUTROPHILS # (AUTO) 3.3 K/uL (1.8-7.7); PLATELET COUNT (AUTO) 264 K/uL (140-450); RED BLOOD CELL COUNT(AUTO) 5.33 MIL/uL (4.20-6.10); RED CELL DISTRIBUTION WIDTH 15.1 % (11.6-13.7); WHITE BLOOD COUNT (AUTO) 6.6 K/uL (4.8-10.8)
[2019-08-01] MEDS ORDERED: INSULIN REGULAR, HUMAN 100 UNIT/ML VIAL SUBQ ONE (08:05)
[2019-08-01 08:10] LABS: APPEARANCE,URINE CLEAR (CLEAR); BILIRUBIN,URINE NEGATIVE (NEGATIVE); BLOOD, URINE NEGATIVE (NEGATIVE); COLOR,URINE YELLOW (YELLOW); LEUKOCYTE ESTERASE ,URINE NEGATIVE (NEGATIVE); NITRITE, URINE NEGATIVE (NEGATIVE); PH,URINE 5.5 (5.0-9.0); UGLUCOSE 3+ (NEGATIVE)
[2019-08-01 08:13] LABS: CARBON DIOXIDE 28.4 mmol/L (21-32); POTASSIUM 4.4 mmol/L (3.5-5.1)
[2019-08-01 08:17] LABS: BARBITURATE, URINE NEG. ng/ml (NEG <=200); BENZODIAZEPINE, URINE NEG. ng/mL (NEG <=200); CANNABINOID, URINE NEG. ng/mL (NEG <=50); COCAINE, URINE NEG. ng/mL (NEG <=300); OPIATE, URINE NEG. ng/mL (NEG <=2000); PHENCYCLIDINE SCREEN,URINE NEG. ng/mL (NEG <=25)
[2019-08-01 08:21] LABS: ALBUMIN 3.9 g/dL (3.4-5.0); TOTAL BILIRUBIN 0.5 mg/dL (0.0-1.0)
--- NOTE | 2019-08-01 08:21 | NUR ---
PATIENT REMOVED IV CANNULA HIMSELF. CANNULA INTACT.
--- NOTE | 2019-08-01 08:24 | NUR ---
PATIENT SIGNED AMA.
[2019-08-01 08:27] LABS: RBC,URINE NONE SEEN /HPF (0-5); URIC ACID CRYSTALS,URINE 0-10 /HPF (None Seen); WBC,URINE NONE SEEN /HPF (0-5)
--- NOTE | 2019-08-01 08:28 | NUR ---
PATIENT WALKED OUT OF ER.
== END 2019-08-01 08:24 | disposition left against medical advice (07) ==
LOC: MED 07:12
DX: F10.129 Alcohol abuse with intoxication, unspecified (principal); E11.65 Type 2 diabetes mellitus with hyperglycemia; J45.909 Unspecified asthma, uncomplicated; I10 Essential (primary) hypertension; F14.90 Cocaine use, unspecified, uncomplicated; Z79.84 Long term (current) use of oral hypoglycemic drugs; Z79.899 Other long term (current) drug therapy
CPT/HCPCS: 36415; 80053; 80305; 81001; 82948; 85025; 96372; 99283; G0482; J1815; J7030

== ENCOUNTER 2022-05-16 17:31 | Emergency (ER) | payer MEDICAID, OTHER ==
[~2022-05-16] VITALS: Ht 170.2 cm; Wt 77.1 kg
[~2022-05-16 17:31] MED LIST changes: -LISI-424 PO; +LISI5TAB24 PO; +METF-1243 PO; -METF-988 PO
[2022-05-16 18:36] VITALS: BP 140/92
--- NOTE | 2022-05-16 18:40 | NUR ---
52 y/o male, c/o left shoulder and neck pain this morning. pt states this morning he was lifting a heavy box and states box fell on left shoulder and head. denies loc or syncope. skin is pink/warm/dry. a&o x4 with even and steady gait. lungs clear bl, heart rate even and regular. pt denies any fever, cp, sob, or cough at this time. pt states pain is 8/10 at this time. ermd made aware of pt. pmh: dm2, htn nka med: ibuprofen (no relief)
[2022-05-16] MEDS ORDERED: KETOROLAC 30 MG/ML VIAL IM ONE (19:05)
[2022-05-16] MEDS ORDERED: HYDROcodone/APAP 5/325 MG 1 TAB TAB PO ONE (19:05)
[2022-05-16] MEDS ORDERED: NAPR-54 PO (20:06)
[2022-05-16] MEDS ORDERED: LID5T TP (20:06)
[2022-05-16] MEDS ORDERED: CYCL-711 PO (20:06)
[2022-05-16] MEDS ORDERED: KETOROLAC 30 MG/ML VIAL ONE (20:57)
[2022-05-16] MEDS ORDERED: HYDROcodone/APAP 5/325 MG 1 TAB TAB ONE (20:58)
[2022-05-16 21:10] VITALS: BP 140/92
--- NOTE | 2022-05-16 21:10 | NUR ---
Patient discharged with v/s stable. Written and verbal after care instructions given and explained. Patient verbalized understanding. Ambulatory with steady gait. All questions addressed prior to discharge. Advised to follow up with PMD.
--- NOTE | 2022-05-16 21:11 | NUR ---
Chart checked and completed.
== END 2022-05-16 21:10 | disposition home or self-care (01) ==
LOC: MED 17:31
DX: S43.402A Unspecified sprain of left shoulder joint, initial encounter (principal); X58.XXXA Exposure to other specified factors, initial encounter; Y93.89 Activity, other specified; Y92.89 Other specified places as the place of occurrence of the external cause; Y99.8 Other external cause status
CPT/HCPCS: 73030; 96372; 99283; J1885

== ENCOUNTER 2024-06-21 09:32 | Emergency (ER) | payer OTHER ==
[~2024-06-21] VITALS: Ht 170.2 cm; Wt 69.4 kg
[~2024-06-21 09:32] MED LIST changes: +CYCL-711 PO; +LID5T TP; +NAPR-337 PO
[2024-06-21 09:50] VITALS: BP 128/81; PULSE 73; RESP 15; TEMP 97.8; O2SAT 100
[2024-06-21] MEDS ORDERED: CYCL-711 PO (11:04)
[2024-06-21] MEDS ORDERED: IBUP-2218 PO (11:04)
[2024-06-21] MEDS: KETOROLAC 30 MG/ML VIAL IM ONE (11:10)
== END 2024-06-21 11:12 | disposition home or self-care (01) ==
LOC: MED 09:32
DX: S39.011A Strain of muscle, fascia and tendon of abdomen, initial encounter (principal); G57.02 Lesion of sciatic nerve, left lower limb; J45.909 Unspecified asthma, uncomplicated; E11.9 Type 2 diabetes mellitus without complications; I10 Essential (primary) hypertension; E78.5 Hyperlipidemia, unspecified; Z79.899 Other long term (current) drug therapy; X58.XXXA Exposure to other specified factors, initial encounter; Y92.89 Other specified places as the place of occurrence of the external cause; Y93.89 Activity, other specified; Y99.8 Other external cause status
CPT/HCPCS: 96372; 99283; J1885